=== PATIENT | male | born 1985 | race Two or more races ===

== ENCOUNTER 2021-12-04 11:40 | Emergency (ER) | payer BC, OTHER ==
[~2021-12-04] VITALS: Ht 177.8 cm; Wt 98.4 kg
[2021-12-04 12:26] VITALS: BP 128/98
[2021-12-04] MEDS ORDERED: KETOROLAC TROMETH 30 MG/ML 1ML VIAL IV ONE (12:45)
[2021-12-04] MEDS ORDERED: cefTRIAXone 1GM/50ML D5W 50 ML IV ONE ×2 (12:45)
[2021-12-04] MEDS ORDERED: SULF400T11 PO (13:07)
[2021-12-04] MEDS ORDERED: IBUP800T27 PO (13:07)
== END 2021-12-04 13:16 | disposition home or self-care (01) ==
LOC: ER 11:40
DX: L03.115 Cellulitis of right lower limb (principal); Z88.6 Allergy status to analgesic agent
CPT/HCPCS: 96365; 96375; 99284; J0696; J1885

== ENCOUNTER 2022-08-03 02:18 | Emergency (ER) | payer BC ==
[~2022-08-03 02:18] MED LIST: IBUP800T27 PO; SULF400T11 PO
[2022-08-03] MEDS ORDERED: IBUP800T26 PO (04:27)
[2022-08-03] MEDS ORDERED: BACDST PO (04:27)
[2022-08-03] MEDS ORDERED: cefTRIAXone SOD 1,000 MG VL IM ONE (04:30)
[2022-08-03 05:02] VITALS: BP 130/83
== END 2022-08-03 05:23 | disposition home or self-care (01) ==
LOC: ER 02:18
DX: L02.415 Cutaneous abscess of right lower limb (principal); Z88.6 Allergy status to analgesic agent
CPT/HCPCS: 96372; 99283; J0696

== ENCOUNTER → 2023-07-14 | Outpatient (CLI) | payer BC ==
[~2023-07-14] MED LIST changes: +BACDST PO; +IBUP-1455 PO; +IBUP-1456 PO; -IBUP800T27 PO
== END | disposition home or self-care (01) ==
LOC: XYW 12:30
PROVIDERS: ATTEND Internal Medicine
DX: I08.3 Combined rheumatic disorders of mitral, aortic and tricuspid valves (principal); I27.20 Pulmonary hypertension, unspecified; R60.9 Edema, unspecified
CPT/HCPCS: 93306

== ENCOUNTER → 2023-11-01 | Outpatient (CLI) | payer BC ==
[2023-11-01 08:59] LABS: LDL Cholesterol 60 mg/dL (< 100); Triglycerides 308 mg/dL (< 150)
[2023-11-01 09:00] LABS: Cholesterol 123 mg/dL (< 200)
[2023-11-01 09:01] LABS: HDL Cholesterol 35 mg/dL (40-59)
== END | disposition home or self-care (01) ==
LOC: LAB 08:27
PROVIDERS: ATTEND Internal Medicine
DX: Z00.00 Encounter for general adult medical examination without abnormal findings (principal)
CPT/HCPCS: 36415; 80061

== ENCOUNTER 2024-07-16 06:07 | Day surgery (SDC) | payer BC ==
[2024-07-09 15:38] LABS: Urine Bacteria None Seen /hpf (None Seen)
[2024-07-09 15:45] LABS: Basophils # (auto) 0.2 10 ^3/uL (0-0.2); Basophils % (auto) 1.9 % (0.0-2.0); Eosinophils # (auto) 0.1 10 ^3/uL (0-0.8); Eosinophils % (auto) 1.4 % (0.0-7.0); Hematocrit 42.8 % (41.0-53.0); Hemoglobin 14.9 g/dL (13.5-17.5); Lymphocytes # (auto) 3.8 10 ^3/uL (0.4-5.4); Lymphocytes % (auto) 41.6 % (10.0-50.0); Mean Corpuscular Hemoglobin 32.7 pg (28.0-32.0); Mean Corpuscular Hgb Conc. 34.9 g/dL (32.0-36.0); Mean Corpuscular Volume 93.8 fL (80.0-100.0); Monocytes # (auto) 0.9 10 ^3/uL (0-1.3); Monocytes % (auto) 9.4 % (0.0-12.0); Neutrophils # (auto) 4.2 10 ^3/uL (1.6-8.6); Neutrophils % (auto) 45.7 % (37.0-80.0); Nucleated Red Blood Cells % 0.1 %; Platelet Count (auto) 327 10^3/uL (140-450); Red Blood Cells 4.57 10^6/uL (4.5-5.90); Red Cell Distribution Width 11.9 % (11.8-14.3); White Blood Cell 9.1 10^3/uL (4.4-10.8)
[2024-07-09 16:01] LABS: INR 1.01 (0.9-1.15); Partial Thromboplastin Time 27.7 SEC (24.5-34.5); Prothrombin Time 10.7 sec (9.3-11.8)
[2024-07-09 16:12] LABS: Urine Blood Negative /uL (Negative); Urine Clarity Clear (Clear); Urine Color Yellow (Yellow); Urine Protein, UAD TRACE (Negative); Urine Specific Gravity 1.025 (1.001-1.035); Urine Squamous Epithelial Cell FEW /hpf (<5); Urine Urobilinogen 2 mg/dL (Negative); Urine WBC 1 /hpf (0 - 3); Urine pH 5.5 (5.0-9.0)
[2024-07-09 16:16] LABS: Alanine Aminotransferase 33 U/L (7-40); Albumin 4.8 g/dL (3.2-4.8); Anion Gap 8 (5-15); Aspartate Aminotransferase 38 U/L (13-40); BUN/Creatinine Ratio 8.7 (10.0-20.0); Blood Urea Nitrogen 10 mg/dL (9-23); Calcium 10.2 mg/dL (8.7-10.4); Carbon Dioxide 26 mmol/L (20-31); Chloride 105 mmol/L (98-107); Glucose 86 mg/dL (74-106); Potassium 4.3 mmol/L (3.5-5.1); Sodium 139 mmol/L (136-145)
[2024-07-09 16:17] LABS: Alkaline Phosphatase 37 U/L (46-116); Bilirubin, Total 0.5 mg/dL (0.2-1.0); Total Protein 7.5 g/dL (5.7-8.2)
[~2024-07-16] VITALS: Ht 177.8 cm; Wt 102.1 kg
[~2024-07-16 06:07] MED LIST changes: +ATOR-507 PO; -BACDST PO; +FENO160T PO; -IBUP-1455 PO; -IBUP-1456 PO; -SULF400T11 PO
[2024-07-16] MEDS ORDERED: SUCCINYLCHOLINE CHLORIDE 20 MG/ML 10ML VIAL IV ONE (06:08)
[2024-07-16] MEDS ORDERED: ceFAZolin 2 GM/D5W100ml 100 ML IV ONE (07:51)
[2024-07-16] MEDS ORDERED: MIDAZOLAM HCL 2MG/2ML 2ml VIAL (1mg/ml) ONE (09:28)
[2024-07-16] MEDS ORDERED: MEPERIDINE HCL (25 MG/ML) 1ML VIAL ONE (09:28)
[2024-07-16] MEDS ORDERED: fentaNYL CITRATE 100 MCG/2 ML VL ONE (09:28)
[2024-07-16] MEDS: LIDOCAINE 1%HCL (LOCAL ANESTH) 10 ML MDV IJ ONE (10:30)
[2024-07-16] MEDS ORDERED: ACE3T PO (10:50)
[2024-07-16] MEDS ORDERED: PROPOFOL 10 MG/ML 20 ML IV ONE (10:50)
[2024-07-16] MEDS ORDERED: DexAMETHasone SOD PHOS 10MG/1ML VIAL INJ ONE (10:50)
--- NOTE | 2024-07-16 10:50 | DVHOP ---
DATE OF SURGERY: 07/16/2024 PREOPERATIVE DIAGNOSIS: Epigastric hernia. POSTOPERATIVE DIAGNOSIS: Epigastric hernia. SURGEON: Tyree Larsen MD LARGE [employer]IMAL VETERINARIAN: Francis Sky NP ANESTHESIA: General endotracheal, Dr. Page. PROCEDURE: Repair of epigastric hernia. DESCRIPTION OF PROCEDURE: Under general anesthesia with the patient's skin prepped and draped, the hernia site was previously marked in the preoperative area, and the skin above the visible palpable bulge was infiltrated with 0.25% Marcaine and 0.5% Xylocaine with epinephrine. The incision was made vertically over the palpable visible bulge. Subcutaneous tissues were divided. The hernia consisted of incarcerated omentum which was mobilized and reduced. The hernia edges were grasped with Jersey clamps and the fascia was under swept with a probing finger in order to avoid entrapment of underlying viscera. Subsequently, a #1 double-stranded Prolene suture was used in a manner of vertical mattress suture in order to create a ridge of tissue which was then reinforced with 0 Tevdek sutures. The wound was irrigated. Hemostasis meticulously accomplished. Subcutaneous tissues and skin were approximated using Monocryl sutures, Dermabond glue, and Steri-Strips. The patient remained stable throughout the procedure and left the operating room following an accurate needle and sponge count. MD JESSE Carver/ROOSEVELT TID: [id number] RECEIPT: [id number]
[2024-07-16 10:55] VITALS: TEMP 97.5; O2SAT 96
[2024-07-16] MEDS ORDERED: ONDANSETRON HCL 4 MG/2 ML VIAL IV ONE (11:00)
[2024-07-16] MEDS ORDERED: ePHEDrine SULFATE 50 MG/ML AMP IV PRN (11:00)
[2024-07-16] MEDS ORDERED: KETOROLAC TROMETH 30 MG/ML 1ML VIAL IV ONE (11:00)
[2024-07-16] MEDS ORDERED: MIDAZOLAM HCL 2MG/2ML 2ml VIAL (1mg/ml) IV PRN (11:00)
[2024-07-16] MEDS ORDERED: hydrALAZINE HCL 20 MG/ML VL IV PRN (11:00)
[2024-07-16] MEDS ORDERED: HYDROmorphone HCL 2 MG/ML VL/or syr ONE (11:19)
[2024-07-16] MEDS: HYDROmorphone HCL 2 MG/ML VL/or syr IV PRN (11:21)
[2024-07-16 12:40] VITALS: BP 142/86; PULSE 92; RESP 17; O2SAT 95
== END 2024-07-16 12:57 | disposition home or self-care (01) ==
LOC: SUR 06:07
PROVIDERS: ATTEND Surgery
DX: K43.9 Ventral hernia without obstruction or gangrene (principal); I10 Essential (primary) hypertension; E78.5 Hyperlipidemia, unspecified; G47.33 Obstructive sleep apnea (adult) (pediatric); Z79.899 Other long term (current) drug therapy; Z87.891 Personal history of nicotine dependence; Z88.5 Allergy status to narcotic agent
CPT/HCPCS: 36415; 49593; 80053; 81001; 85025; 85610; 85730; 86850; 86900; 86901; C1781; J0330; J1100; J1171; J2003; J2175; J2250; J2371; J2704; J3010

== ENCOUNTER → 2025-01-01 | Outpatient (CLI) | payer BC ==
[~2025-01-01] MED LIST changes: +ACE3T PO
[2025-01-01 11:44] LABS: Hematocrit 45.4 % (41.0-53.0); Hemoglobin 16.0 g/dL (13.5-17.5); Mean Corpuscular Hemoglobin 31.3 pg (28.0-32.0); Mean Corpuscular Volume 89.2 fL (80.0-100.0); Nucleated Red Blood Cells % 0.1 %
[2025-01-01 12:29] LABS: Alanine Aminotransferase 24 U/L (7-40); Albumin 4.8 g/dL (3.2-4.8); Alkaline Phosphatase 51 U/L (46-116); Anion Gap 10 (5-15); BUN/Creatinine Ratio 11.1 (10.0-20.0); Bilirubin, Total 0.5 mg/dL (0.2-1.0); Blood Urea Nitrogen 10 mg/dL (9-23); Calcium 10.1 mg/dL (8.7-10.4); Carbon Dioxide 23 mmol/L (20-31); Chloride 106 mmol/L (98-107); Cholesterol 119 mg/dL (< 200); Glucose 114 mg/dL (74-106); Potassium 4.0 mmol/L (3.5-5.1); Sodium 139 mmol/L (136-145); Total Protein 7.3 g/dL (5.7-8.2); Triglycerides 243 mg/dL (< 150)
[2025-01-01 12:30] LABS: HDL Cholesterol 28 mg/dL (40-59)
== END | disposition home or self-care (01) ==
LOC: LAB 11:34
PROVIDERS: ATTEND Internal Medicine
DX: E78.5 Hyperlipidemia, unspecified (principal); R10.13 Epigastric pain
CPT/HCPCS: 36415; 80053; 80061; 83036; 84443; 85025